=== PATIENT | female | born 1960 | race Two or more races ===

== ENCOUNTER 2021-08-20 13:37 | Emergency (ER) | payer OTHER, SELFPAY ==
--- NOTE | ~2021-08-20 | XR_ITS ---
EXAMINATION: XR CHEST CLINICAL INFORMATION: Chest pain COMPARISON: None TECHNIQUE: 2 views of the chest were obtained. FINDINGS: The cardiac and mediastinal contours are normal. The lungs are clear. There is no pleural effusion or pneumothorax. There are degenerative changes of the spine. XR/XR chest 2V IMPRESSION: No evidence for acute disease in the chest.
[2021-08-20 14:10] VITALS: BP 172/71; PULSE 84; RESP 18; TEMP 37; O2SAT 98; BMI 28.0
--- NOTE | 2021-08-20 14:14 | ECG_ITS ---
Test Reason : CP Blood Pressure : / mmHG Vent. Rate : 081 BPM Atrial Rate : 081 BPM P-R Int : 166 ms QRS Dur : 074 ms QT Int : 356 ms P-R-T Axes : 045 -03 043 degrees QTc Int : 413 ms Normal sinus rhythm Low voltage QRS Borderline ECG No previous ECGs available Referred By: Generic ED Physician Electronically Signed By:ARANZA NICOLE MD
[2021-08-20 14:57] LABS: COVID-19 Test Positive (Negative); IDNOW Serial# 9DD0AD1C
--- NOTE | 2021-08-20 15:24 | ED_ITS ---
HPI - URI/Sore Throat General Chief Complaint: Upper Respiratory Symptoms Stated Complaint: Sharp R back pain Time Seen by Provider: 08/20/21 15:32 Source: patient Mode of arrival: ambulatory Limitations: no limitations History of Present Illness HPI Narrative: 61-year-old female presents to ED for back pain, coughing, bilateral ear pain, chills, fever, and fatigue. Patient states she is not vaccinated against COVID. Patient states her was sick 1st and now she is having symptoms. Patient states no chest pain or shortness of breath. Denies any leg swelling calf pain or coughing up blood. Related Data Previous Rx's Medication Instructions Recorded benzonatate 100 mg capsule 100 mg PO TID PRN 5 Days #15 cap 08/20/21 naproxen 500 mg tablet 500 mg PO BID PRN 10 Days #20 tab 08/20/21 Allergies Allergy/AdvReac Type Severity Reaction Status Date / Time morphine Allergy Intermediate TACHYCARDIA Verified 08/20/21 14:10 [MORPHINE] acetaminophen Allergy Unknown RACING Verified 08/20/21 14:10 [From VICODIN] HEARTRATE From PERCOCET Allergy Mild DRY MOUTH Uncoded 04/10/20 16:56 From VICODIN Allergy Unknown RACING Uncoded 04/10/20 16:56 HEARTRATE Review of Systems Verdana 4l Review of Systems: Verdana 4d Cough, back pain, ear pain, Verdana 4d chills, fever, body aches. Negative for chest pain or shortness of breath. Negative for pleurisy Verdana 4d Yes all other systems are reviewed and are negative PMFSH Past Medical History Medical History (Updated 08/20/21 @ 15:57 by VINCENZO Jacobsen) Diabetes Social History Social History Advance Directives: No Advance Directives Information Provided: Yes Physical Exam Verdana 4l Vital Signs: Verdana 4d Verdana 4d Vital Signs: Verdana 4d Verdana 4Bd Last Vital Signs Verdana 4d Street Inspector New 4d Street Inspector New 4d Temp 98.6 F 08/20/21 14:10 Street Inspector New 4d Pulse 84 08/20/21 14:10 Street Inspector New 4d Resp 18 08/20/21 14:10 BP 172/71 H 08/20/21 14:10 Pulse Ox 98 08/20/21 14:10 BMI result Body Mass Index 28.0 Const: General: cooperative, healthy appearing, comfortable, no acute distress and well developed Orientation/consciousness: oriented to person, oriented to place, oriented to time and patient oriented x3 HENMT: Head: Yes normal to inspection, Yes No palpable skull fracture present, Yes normocephalic and Yes atraumatic Eyes: General: appearance normal, both eyes and all related structures Neck: Neck: Yes normal visual inspection, Yes full ROM, Yes no lymphadenopathy, Yes no meningeal signs, Yes trachea midline, Yes supple, No anterior neck swelling and No tender Chest: Chest palpation & inspection: normal inspection of the chest and normal palpation of entire chest wall Resp: Effort & Inspection: normal respiratory effort and able to speak in complete sentences Auscultation: clear to auscultation bilaterally Cardio: Jugular venous distension: no JVD Heart sounds: S1 normal heart sound present and S2 normal heart sound present GI: Inspection: Yes normal to inspection and No abdominal wall ecchymosis Palpation (GI): Soft to palpation, not firm, nontender, no guarding and not rigid : General: No CVA tenderness and Yes no CVA tenderness Back/Spine/Pelvis: Back: no CVA tenderness, No CVA tenderness and No Dunham-Hamilton sign present Skin: General skin exam: no rashes or lesions noted and elasticity normal Neuro: General: oriented to person, oriented to place, oriented to time, patient oriented x3, gait normal and no meningeal signs Extrem: Other: Lower extremities negative for swelling, pitting, edema, or calf tenderness. General: Yes normal to inspection and Yes full ROM Psych: Appearance: grossly normal, well kempt and not disheveled Course Course Course Narrative: Patient sent for COVID A chest x-ray Reevaluation(s) Reevaluation #1: Covid test is positive. patient chest xray is normal. Vital stable. patient referred for monoclonal antibody. NOt suspecting PE. Time: 15:50 MDM - URI/Sore Throat MDM Narrative Medical decision making narrative: Covid Lab Data Labs: Lab Results 08/20/21 Range/Units 14:39 COVID-19 ([facility]) Positive A (Negative) COVID-19 Clin Com See Note Discharge Plan Discharge Clinical Impression: COVID-19 Patient Disposition: Home, Self-Care Instructions: COVID-19 (Coronavirus Disease 2019) (ED) Additional Instructions: You came back positive for COVID. Recommend self-isolation for at least 12 days. Return to the ED if he have shortness of breath, chest pain, shortness of breath on exertion, chest pain on inspiration, calf pain, coughing up blood, weakness, dizziness intractable fever, or any other concerning symptoms. You referred for monoclonal antibodies. You will be called if you fit criteria to receive treatment. Please follow-up with primary care provider Prescriptions: New benzonatate 100 mg capsule 100 mg PO TID PRN (Reason: cough) 5 Days Qty: 15 0RF naproxen 500 mg tablet 500 mg PO BID PRN (Reason: pain) 10 Days Qty: 20 0RF Interventions: ED Discharge Assessment Last Done: 08/20/21 16:03 Discharge Date/Time: 08/20/21 16:04 Print Language: Venezuelan
== END 2021-08-20 16:04 | disposition home or self-care (01) ==
PROVIDERS: Emergency Provider Emergency Medicine Emergency Medical Services; PCP Physician Assistant
DX: U07.1 COVID-19 (principal); M54.9 Dorsalgia, unspecified
CPT/HCPCS: 71046; 87635; 93005; 99283

== ENCOUNTER 2021-09-05 22:53 | Emergency (ER) | payer OTHER, SELFPAY ==
--- NOTE | ~2021-09-05 | CT_ITS ---
EXAMINATION: CT CHEST WITHOUT CONTRAST CLINICAL INFORMATION: Left scapular pain for 2 weeks, negative chest COMPARISON: Chest x-ray 08/20/2021 TECHNIQUE: Multidetector volumetric CT imaging of the chest was done. Axial MIP volume rendering provided. Sagittal and coronal reformatted images were obtained. This CT examination was performed using dose optimization techniques as appropriate, variously including the following: *Automated exposure control *Adjustment of mA and/or kV according to patient size (this includes techniques or standardized protocols for targeted exams where dose is matched to indication/reason for exam; i.e. extremities or head) *Use of iterative reconstruction technique DLP: 282 mGy-cm FINDINGS: LUNGS: No dense regions of consolidation bilaterally. Mild ill-defined subpleural ground glass opacities in the lower lobes favor atelectasis. Few additional scattered, ill-defined subtle groundglass foci noted in the lung parenchyma, such as in the left upper lobe on image 136/501. MEDIASTINUM: Visualized thyroid gland appears unremarkable. There are subcentimeter mediastinal lymph nodes within the range of normal variation. Cardiac size is within normal limits; no pericardial effusion. Coronary artery calcifications are present. PLEURA: There is no pleural effusion. No pleural mass or thickening. AXILLA: No lymphadenopathy. UPPER ABDOMEN: A left adrenal nodule measures up to 1.6 cm in diameter and 31 Hounsfield units. OSSEOUS STRUCTURES: No acute findings identified. Multilevel endplate osteophytes are noted in the spine. CT/CT chest wo con IMPRESSION: 1. Few subtle ill-defined groundglass foci in the lungs, which may represent minimal inflammatory change. 2. Coronary artery calcifications. Correlation with cardiac risk factors is recommended. 3. Nonspecific left adrenal nodule measuring up to 1.6 cm. If not already performed, further assessment with nonemergent adrenal protocol CT is recommended.
[2021-09-05 23:00] VITALS: BP 129/63; PULSE 89; RESP 16; TEMP 36.4; O2SAT 100; BMI 28.0
--- NOTE | 2021-09-06 00:17 | ED.GENADULT ---
HPI - General Adult General Chief complaint: Back Pain/Injury Stated complaint: back pain Time Seen by Provider: 09/06/21 00:15 Source: patient and family () Mode of arrival: ambulatory Limitations: no limitations History of Present Illness HPI narrative: 61 years old female came in for evaluation of left scapular pain Pain started 2 weeks ago, pain is constant, confined to the right scapular area of the back, dull aching pain, worsening with movement, partially relieved with NSAIDs. No difficulty breathing, patient has been coughing nonproductive cough, but no trauma to the back or the chest. No recent travel, no lower extremity swelling or pain, no history of PE or DVT. Related Data Previous Rx's Medication Instructions Recorded benzonatate 100 mg capsule 100 mg PO TID PRN 5 Days #15 cap 08/20/21 naproxen 500 mg tablet 500 mg PO BID PRN 10 Days #20 tab 08/20/21 nitrofurantoin 100 mg PO BID #14 cap 09/06/21 monohydrate/macrocrystals 100 mg capsule (Macrobid) Allergies Allergy/AdvReac Type Severity Reaction Status Date / Time morphine [MORPHINE] Allergy Intermediate TACHYCARDIA Verified 08/20/21 14:10 acetaminophen [From VICODIN] Allergy Unknown RACING Verified 08/20/21 14:10 HEARTRATE From PERCOCET Allergy Mild DRY MOUTH Uncoded 04/10/20 16:56 From VICODIN Allergy Unknown RACING Uncoded 04/10/20 16:56 HEARTRATE Review of Systems Review of Systems: All other systems are reviewed and are negative Constitutional: Reports as per HPI and Reports no additional constitutional complaints Eyes: Reports as per HPI and Reports no additional eye complaints Reports system reviewed and no additional complaints, except as documented Cardiovascular: Reports as per HPI and Reports no additional cardiovascular complaints Respiratory: Reports as per HPI and Reports no additional respiratory complaints Gastrointestinal: Reports as per HPI and Reports no additional gastrointestinal complaints Genitourinary: Reports no additional female genitourinary complaints Musculoskeletal: Reports no additional musculoskeletal complaints Skin/Breast: Reports system reviewed and no additional complaints, except as docu Psychiatric: Reports no additional psychiatric complaints Endocrine: Reports no additional endocrine complaints Hematologic/Lymphatic: Reports no additional hematologic/lymphatic complaints Allergic/Immunologic: Reports no additional allergic/immunologic complaints Reports system reviewed and no additional complaints, except as documented and Reports Abnormal speech present [facility] Past Medical History Medical History Diabetes Social History Social History Advance Directives: No Patient : No Physical Exam ED Vital Signs: Vital Signs - 24 hr 09/05/21 23:00 Temperature 97.6 F Pulse Rate 89 Respiratory Rate 16 Blood Pressure 129/63 Pulse Oximetry 100 BMI result Body Mass Index 28.0 Vital signs have been reviewed as appeared to be correct. Blood pressure normal. Heart rate normal. Respiration rate normal. Temperature normal. Oxygen saturation normal. Appearance: Alert. Oriented X3. No acute distress. Head: Normal external exam. Normocephalic. Atraumatic. No Cast signs noted. No raccoon eyes noted Eyes: PERRLA. EOMI. Conjunctiva and sclera normal. Eyelids normal. ENT: TM's Normal. Pharynx normal. Uvula midline. Moist mucous membranes. No trismus noted. No drooling noted. No muffled voice noted. Neck: Normal inspection. Neck supple. FROM. No adenopathy. Thyroid Normal. No meningeal signs. No neck mass noted. CVS: Normal heart rate and rhythm. Heart sound normal. No murmurs noted. Pulses normal throughout. Respiratory: No respiratory distress. Painless inspiration. Breath sounds normal. No wheezes/rales/rhonchi noted. Diffuse tenderness over right scapular area, no palpable step-off or deformity. No accessory muscle usage noted or decreased air movement noted. Abdomen: Soft and nontender. Bowel sounds normal in all 4 quadrants. No distention noted. No organomegaly noted. No visible injury noted. Back: No CVA tenderness. Full range of motion noted. Skin: Skin warm and dry. Normal skin color. Normal skin turgor. No rashes/lesions/lacerations noted. Extremities: No lower extremity edema. Extremities exhibit normal range of motion. Extremities nontender. Neuro: Oriented X 3. Cranial nerve exam: II-XII are grossly intact No motor deficit. No sensory deficit. Reflexes normal. Course Course Course Narrative: Assessment and plan. Right scapular back pain appears to be muscular, patient had negative x-ray and CT of the chest showing incidental mass of left adrenal gland that will require further workup as an outpatient, CT finding was discussed with the patient. Discussed with the patient to continue using NSAIDs p.r.n. pain. Macrobid for 1 week for UTI and patient was encouraged to drink plenty of fluids. Medical Decision Making Lab Data Labs: Lab Results 09/06/21 Range/Units 01:04 Urine Color YELLOW Urine Appearance CLOUDY Urine pH 6.0 (5.0-8.0) Ur Specific [place] 1.020 (1.005-1.025) Urine Protein 3+ H (NEG-TRACE) MG/DL Urine Glucose (UA) 250 H (NEG) MG/DL Urine Ketones NEG (NEG) MG/DL Urine Blood 1+ H (NEG) Urine Nitrite NEG (NEG) Ur Leukocyte Esterase TRACE H (NEG) Urine RBC 1-4 (0) /HPF Urine WBC 10-14 H (0-4) /HPF Ur Squamous Epith Cells TRACE /LPF Ur Renal Epithelial Cell TRACE /LPF Urine Bacteria 4+ /LPF Hyaline Casts 1-4 /LPF Waxy Casts 0-2 /LPF Imaging Data Chest CT: Attestation: I personally reviewed and interpreted this imaging study as follows: Radiologist's impression: 1.? Few subtle ill-defined groundglass foci in the lungs, which may represent minimal inflammatory change. 2.? Coronary artery calcifications. Correlation with cardiac risk factors is recommended. 3.? Nonspecific left adrenal nodule measuring up to 1.6 cm. If not already performed, further assessment with nonemergent adrenal protocol CT is recommended. Discharge Plan Discharge Clinical Impression: Thoracic back pain, Adrenal nodule, UTI (urinary tract infection) Patient Disposition: Home, Self-Care Instructions: Urinary Tract Infection in Women (ED), Back Pain (ED) Additional Instructions: Need to follow-up with her primary doctor for the incidental mass that was found on your left adrenal gland (which is above your left kidney) Prescriptions: New nitrofurantoin monohyd/m-cryst [Macrobid] 100 mg capsule 100 mg PO BID Qty: 14 0RF Rx Instructions: must administer with a meal/food No Action benzonatate 100 mg capsule 100 mg PO TID PRN (Reason: cough) 5 Days Qty: 15 0RF naproxen 500 mg tablet 500 mg PO BID PRN (Reason: pain) 10 Days Qty: 20 0RF Referrals: Physician,Unknown J [Primary Care Provider] - 2 days
[2021-09-06 01:08] LABS: Appearance Urine CLOUDY; Color Urine YELLOW; Glucose Urine UA 250 MG/DL (NEG); Leukocyte Esterase Urine TRACE (NEG); Nitrite Urine NEG (NEG); UACC Culture Trigger YES; Urine Blood 1+ (NEG); Urine Ketones NEG (NEG); Urine Protein 3+ MG/DL (NEG-TRACE)
[2021-09-06 01:39] LABS: Renal Epithelial Cells Urine TRACE /LPF; Squamous Epithelial Cell Urine TRACE /LPF; Waxy Casts Urine 0-2 /LPF
[2021-09-06 01:40] LABS: Bacteria Urine 4+ /LPF
== END 2021-09-06 01:54 | disposition home or self-care (01) ==
PROVIDERS: Emergency Provider Emergency Medicine
DX: N39.0 Urinary tract infection, site not specified (principal); M54.6 Pain in thoracic spine; E27.8 Other specified disorders of adrenal gland; Z79.899 Other long term (current) drug therapy
CPT/HCPCS: 71250; 81001; 87086; 87088; 87186; 99284

== ENCOUNTER 2022-03-12 15:46 | Emergency (ER) | payer OTHER, SELFPAY ==
[2022-03-12 17:52] VITALS: BP 136/88; PULSE 82; RESP 16; TEMP 36.2; O2SAT 98; BMI 27.6
[2022-03-12 18:20] LABS: Red Cell Distribution Width 13.7 % (11.0-16.0)
[2022-03-12 18:21] LABS: Hematocrit 30.6 % (37.0-47.0); Hemoglobin 10.4 g/dl (12.0-16.0); Mean Corpuscular Hemoglobin 27.5 pg (27.0-33.0); Platelet Count 127 X10*3/uL (160-400); Red Blood Count 3.78 X10*6/uL (4.20-5.50); White Blood Count 7.4 X10*3/uL (4.8-10.8)
[2022-03-12 18:25] LABS: PLT ABN DIST 1
[2022-03-12 18:38] LABS: Anion Gap 15 (12-20); Blood Urea Nitrogen 25 mg/dL (9-16); Calcium 8.5 mg/dL (8.4-10.2); Carbon Dioxide 23 mmol/L (22-29); Chloride 102 mmol/L (96-108); Creatinine Clr Calc Pharmacy 37.4; Estimated Glomerular Filt Rate 36; Glucose Random 470 mg/dL (60-115); Potassium 4.3 mmol/L (3.3-5.1); Sodium 136 mmol/L (135-145)
[2022-03-12 21:15] VITALS: BP 207/95; PULSE 72; O2SAT 100
[2022-03-12 21:28] LABS: Glucose, Whole Blood 296 mg/dL (60-115)
== END 2022-03-12 23:12 | disposition left against medical advice (07) ==
PROVIDERS: Emergency Provider Emergency Medicine
DX: R10.31 Right lower quadrant pain (principal); Z79.899 Other long term (current) drug therapy
CPT/HCPCS: 36415; 80048; 82947; 85027; 99282; 99283

== ENCOUNTER 2022-04-22 15:17 | Emergency (ER) | payer OTHER, SELFPAY ==
--- NOTE | 2022-04-22 | ECG_ITS ---
Test Reason : chest pain Blood Pressure : / mmHG Vent. Rate : 083 BPM Atrial Rate : 083 BPM P-R Int : 168 ms QRS Dur : 072 ms QT Int : 362 ms P-R-T Axes : 047 000 028 degrees QTc Int : 425 ms Normal sinus rhythm Normal ECG When compared with ECG of 20-AUG-2021 14:42, No significant change was found Referred By: Generic ED Physician Electronically Signed By:GWENDOLYN NASH
--- NOTE | ~2022-04-22 | CT_ITS ---
EXAMINATION: CT HEAD WITHOUT CONTRAST CT CERVICAL SPINE WITHOUT CONTRAST CLINICAL INFORMATION: Headache. Hypertension. Fall. Neck pain. COMPARISON: None TECHNIQUE: Contiguous axial imaging was performed from the skull base to vertex without intravenous administration of contrast. Contiguous axial CT images of the cervical spine were obtained without contrast. Sagittal and coronal reformats were provided and reviewed. This CT examination was performed using dose optimization techniques as appropriate, variously including the following: *Automated exposure control. *Adjustment of mA and/or kV according to patient size (this includes techniques or standardized protocols for targeted exams where dose is matched to indication/reason for exam; i.e. extremities or head). *Use of iterative reconstruction technique. DLP: 1114 mGy-cm FINDINGS: HEAD: There is no evidence of acute intracranial hemorrhage or territorial infarction. No abnormal mass effect or midline shift is seen. Dunham to white matter differentiation is well preserved. No extra-axial fluid collections are identified. The ventricles are normal in size. There is no abnormal attenuation within the brain parenchyma. The osseous structures and soft tissues are normal. The mastoid air cells and visualized portions of the paranasal sinuses are well aerated. CERVICAL SPINE: Mild reversal of the normal cervical lordosis which may be positional or related to muscular spasm. No acute fracture or subluxation. No loss of vertebral body height. Multilevel loss of intervertebral disc height with endplate osteophytes, most prominent at C5-C6. Unremarkable facet joints. No lytic or blastic osseous lesion. Unremarkable prevertebral soft tissues. No abnormal soft tissue mass or fluid collection. Thyroid within normal limits. Visualized lung apices are clear. No significant central canal or neural foraminal stenosis. CT/CT cervical spine wo IV con IMPRESSION: HEAD: No acute intracranial hemorrhage or mass effect. CERVICAL SPINE: No acute fracture or subluxation. Mild reversal of the normal cervical lordosis which may be positional or related muscle spasm. Mild multilevel degenerative disc disease, most prominent at C5-C6.
--- NOTE | ~2022-04-22 | XR_ITS ---
EXAMINATION: XR CHEST CLINICAL INFORMATION: Chest pain COMPARISON: 08/20/2021 TECHNIQUE: 2 views of the chest were obtained. FINDINGS: No focal consolidation, pulmonary edema, or pleural effusion. Stable cardiomediastinal silhouette. XR/XR chest 2V IMPRESSION: No acute cardiopulmonary findings.
[2022-04-22 15:18] VITALS: BP 195/96; PULSE 90; RESP 18; TEMP 36.4; O2SAT 97; BMI 27.2
[2022-04-22 15:41] LABS: Hemoglobin 10.1 g/dl (12.0-16.0); Imm Gran Abs Auto 0.03 X10*3/uL (0.00-0.03); Imm Gran Pct Auto 0.4 % (0.0-0.4); MANUAL DIFF FLAG SCAN; SCAN SMEAR FLAG 1
[2022-04-22 15:43] LABS: Basophils Absolute Auto 0.1 X10*3/uL (0.0-0.2); Basophils Percent Auto 0.6 % (0-2); Eosinophils Absolute Auto 0.1 X10*3/uL (0.0-0.4); Eosinophils Percent Auto 1.6 % (0-4); Hematocrit 30.3 % (37.0-47.0); Lymphocytes Percent Auto 12.1 % (20-40); Mean Corpuscular HGB Conc 33.3 g/dl (31.0-35.0); Mean Corpuscular Hemoglobin 26.9 pg (27.0-33.0); Mean Corpuscular Volume 80.6 fL (80.0-98.0); Monocytes Absolute Auto 0.6 X10*3/uL (0.1-1.2); Monocytes Percent Auto 6.9 % (2-11); Neutrophils Absolute Auto 6.6 x10*3/uL (2.0-8.3); Neutrophils Percent Auto 78.4 % (45-73); Platelet Count 138 X10*3/uL (160-400); Red Blood Count 3.76 X10*6/uL (4.20-5.50); White Blood Count 8.4 X10*3/uL (4.8-10.8)
[2022-04-22 16:00] LABS: Troponin-I High Sensitivity 3.5 ng/L (<3.5-17.0)
[2022-04-22 16:01] LABS: PLT ABN DIST 1
[2022-04-22 16:02] LABS: Mean Platelet Volume 13.3 fL (9.4-12.3)
[2022-04-22 16:03] LABS: Anion Gap 17 (12-20); Blood Urea Nitrogen 28 mg/dL (9-16); Calcium 8.6 mg/dL (8.4-10.2); Carbon Dioxide 23 mmol/L (22-29); Chloride 103 mmol/L (96-108); Creatinine Clr Calc Pharmacy 37.1; Estimated Glomerular Filt Rate 36; Glucose Random 356 mg/dL (60-115); Potassium 4.1 mmol/L (3.3-5.1); SLIDE REVIEW VERIFIED; Sodium 139 mmol/L (135-145)
--- NOTE | 2022-04-22 16:45 | ED_ITS ---
HPI - Chest Pain General Chief Complaint: Chest Pain Stated Complaint: chest pains Time Seen by Provider: 04/22/22 16:32 Source: patient Mode of arrival: ambulatory History of Present Illness HPI narrative: 61-year-old female with history of hypertension states that she has been having intermittent left upper extremity numbness as well as pain that she states extends from the left to base of her neck out across her shoulder. She also s tates that she is having some pain into her left chest as well as into her back. She denies any recent fever, chills, shortness of breath, new cough, sore throat, palpitations. Patient states that she has fallen ?a couple of times? and denies any alcohol or drug use and states that 1 event involved her striking the back of her head. Related Data Previous Rx's Medication Instructions Recorded benzonatate 100 mg capsule 100 mg PO TID PRN cough 5 days #15 08/20/21 caps naproxen 500 mg tablet 500 mg PO BID PRN pain 10 days #20 08/20/21 tabs nitrofurantoin 100 mg PO BID #14 caps 09/06/21 monohydrate/macrocrystals 100 mg capsule (Macrobid) Allergies Allergy/AdvReac Type Severity Reaction Status Date / Time morphine [MORPHINE] Allergy Intermediate TACHYCARDIA Verified 08/20/21 14:10 acetaminophen [From VICODIN] Allergy Unknown RACING Verified 08/20/21 14:10 HEARTRATE From PERCOCET Allergy Mild DRY MOUTH Uncoded 04/10/20 16:56 From VICODIN Allergy Unknown RACING Uncoded 04/10/20 16:56 HEARTRATE Review of Systems Review of Systems: Pertinent positives and negatives as stated in HPI 10 point review of systems is otherwise negative. [facility] Past Medical History Source: nursing notes reviewed Medical History Diabetes Social History Social History Patient Tobacco Use Status: Former Tobacco user Use of substances other than those prescribed or required for medical reasons: No Advance Directives: No Advance Directives Information Provided: No Physical Exam Vital Signs: Vital Signs: Last Vital Signs Temp 97.8 F 04/22/22 19:27 Pulse 78 04/22/22 19:27 Resp 17 04/22/22 19:27 BP 186/90 H 04/22/22 19:27 Pulse Ox 99 04/22/22 19:27 O2 Del Method 04/22/22 19:27 BMI result Body Mass Index 27.2 VITAL SIGNS: Reviewed. GENERAL: Well developed, well nourished, in no acute distress. HEAD: Normocephalic/atraumatic EYES: PERRLA, EOMI EARS: Ext canals without abnormality NOSE: Nares patent bilateral OROPHARYNX: no oral lesions noted, posterior pharynx clear NECK: Supple, no adenopathy LUNGS: Normal breath sounds. No adventitious sounds or accessory muscle use. SpO2<99>; CHEST WALL: Reproducible discomfort on palpation over left anterior chest wall. CARDIOVASCULAR: Regular rate and rhythm without noted murmurs ABDOMEN: Soft, non-tender, non-distended with bowel sounds. MUSCULOSKELETAL: No tenderness, deformities, or effusions noted on gross inspection; LEFT SHOULDER: Reproducible pain on palpation across the trapezius spanning left neck base to left shoulder, full range of motion noted at the shoulder with neurovascular intact left upper extremity without swelling or erythema. EXTREMITIES: No cyanosis, clubbing or edema. SKIN: Inspection of the skin reveals no rashes NEUROLOGIC: Alert and oriented x 4. Strength and sensation to light touch were grossly intact x 4. Course Course Course Narrative: 61-year-old female with history and clinical presentation suggestive of musculoskeletal in etiology and on review of all investigations there are no acute findings to suggest acute cardiopulmonary etiology. Patient will be given pain medication, however she is noted to be very hypertensive and had not taken her blood pressure medication for the day. Given the hypertension, history of diabetes, and the outside possibility that the symptoms involving her left upper extremity may be due to hypertensive induced neurologic deficit will obtain head CT (she also states that she fell and struck her head) and cervical spine. Review of all investigations most consistent with musculoskeletal, muscle spasm. On re-evaluation patient states that she is feeling much better however she does continued to be hypertensive and was given additional medication for her blood pressure. MDM - Chest Pain Lab Data Result diagrams: 04/22/22 15:35 04/22/22 15:35 Labs: Lab Results 04/22/22 04/22/22 04/22/22 Range/Units 15:35 15:35 15:35 WBC 8.4 (4.8-10.8) X10*3/uL RBC 3.76 L (4.20-5.50) X10*6/uL Hgb 10.1 L (12.0-16.0) g/dl Hct 30.3 L (37.0-47.0) % MCV 80.6 (80.0-98.0) fL MCH 26.9 L (27.0-33.0) pg MCHC 33.3 (31.0-35.0) g/dl RDW 14.0 (11.0-16.0) % Plt Count 138 L (160-400) X10*3/uL MPV 13.3 H (9.4-12.3) fL Immature Gran % (Auto) 0.4 (0.0-0.4) % Neut % (Auto) 78.4 H (45-73) % Lymph % (Auto) 12.1 L (20-40) % [place] % (Auto) 6.9 (2-11) % Eos % (Auto) 1.6 (0-4) % Baso % (Auto) 0.6 (0-2) % Lymph # (Auto) 1.0 L (1.2-4.9) X10*3/uL [place] # (Auto) 0.6 (0.1-1.2) X10*3/uL Eos # (Auto) 0.1 (0.0-0.4) X10*3/uL Baso # (Auto) 0.1 (0.0-0.2) X10*3/uL Abs Immat Gran (auto) 0.03 (0.00-0.03) X10*3/uL Absolute Neuts (auto) 6.6 (2.0-8.3) x10*3/uL Absolute Nucleated RBC 0.000 (0.0-0.012) X10*3/uL Nucleated RBC % (auto) 0.0 (0.0-0.2) /100WBC Smear Tech's Comments VERIFIED Sodium 139 (135-145) mmol/L Potassium 4.1 (3.3-5.1) mmol/L Chloride 103 (96-108) mmol/L Carbon Dioxide 23 (22-29) mmol/L Anion Gap 17 (12-20) BUN 28 H (9-16) mg/dL Creatinine 1.47 H (0.5-1.4) mg/dL Estim Creat Clear Calc 37.1 Estimated GFR 36 Random Glucose 356 H* (60-115) mg/dL Calcium 8.6 (8.4-10.2) mg/dL Total Bilirubin 0.3 (0.0-1.0) mg/dL Direct Bilirubin < 0.2 (0.0-0.5) mg/dL AST 23 (5-31) U/L ALT 16 (0-31) U/L Alkaline Phosphatase 79 (39-117) U/L Troponin I High Sens 3.5 (<3.5-17.0) ng/L Total Protein 6.1 L (6.5-8.0) g/dL Albumin 3.1 L (3.5-5.0) g/dL 04/22/22 Range/Units 16:52 WBC (4.8-10.8) X10*3/uL RBC (4.20-5.50) X10*6/uL Hgb (12.0-16.0) g/dl Hct (37.0-47.0) % MCV (80.0-98.0) fL MCH (27.0-33.0) pg MCHC (31.0-35.0) g/dl RDW (11.0-16.0) % Plt Count (160-400) X10*3/uL MPV (9.4-12.3) fL Immature Gran % (Auto) (0.0-0.4) % Neut % (Auto) (45-73) % Lymph % (Auto) (20-40) % [place] % (Auto) (2-11) % Eos % (Auto) (0-4) % Baso % (Auto) (0-2) % Lymph # (Auto) (1.2-4.9) X10*3/uL [place] # (Auto) (0.1-1.2) X10*3/uL Eos # (Auto) (0.0-0.4) X10*3/uL Baso # (Auto) (0.0-0.2) X10*3/uL Abs Immat Gran (auto) (0.00-0.03) X10*3/uL Absolute Neuts (auto) (2.0-8.3) x10*3/uL Absolute Nucleated RBC (0.0-0.012) X10*3/uL Nucleated RBC % (auto) (0.0-0.2) /100WBC Smear Tech's Comments Sodium (135-145) mmol/L Potassium (3.3-5.1) mmol/L Chloride (96-108) mmol/L Carbon Dioxide (22-29) mmol/L Anion Gap (12-20) BUN (9-16) mg/dL Creatinine (0.5-1.4) mg/dL Estim Creat Clear Calc Estimated GFR Random Glucose (60-115) mg/dL Calcium (8.4-10.2) mg/dL Total Bilirubin (0.0-1.0) mg/dL Direct Bilirubin (0.0-0.5) mg/dL AST (5-31) U/L ALT (0-31) U/L Alkaline Phosphatase (39-117) U/L Troponin I High Sens 3.8 (<3.5-17.0) ng/L Total Protein (6.5-8.0) g/dL Albumin (3.5-5.0) g/dL ECG Data ECG #1: Attestation: I personally reviewed and interpreted this ECG as follows: Prior ECG tracings: available for review Interpretation: Normal sinus rhythm, HR-83, no STEMI, MI/QRS/QTC are within normal limits. Discharge Plan Discharge Clinical Impression: Hypertension, Musculoskeletal pain, Muscle spasm Patient Disposition: Home, Self-Care Instructions: DASH Eating Plan (ED), Hypertension (ED), Muscle Spasm (ED), Musculoskeletal Pain (ED) Additional Instructions: 1. Muscle spasm: Recommend [id number] Tylenol/ibuprofen and consider using a lidocaine patch for additional symptom relief. 2. Please start taking your blood pressure medication in the morning as directed. 3. Follow-up with your primary care provider tomorrow morning to further discuss improve blood pressure control. Return to the ER for worsening symptoms. Prescriptions: No Action benzonatate 100 mg capsule 100 mg PO TID PRN (Reason: cough) 5 Days Qty: 15 0RF naproxen 500 mg tablet 500 mg PO BID PRN (Reason: pain) 10 Days Qty: 20 0RF nitrofurantoin monohyd/m-cryst [Macrobid] 100 mg capsule 100 mg PO BID Qty: 14 0RF Rx Instructions: must administer with a meal/food
[2022-04-22 17:20] LABS: Troponin-I High Sensitivity 3.8 ng/L (<3.5-17.0)
[2022-04-22 17:52] VITALS: BP 203/106; PULSE 89; RESP 18; O2SAT 99
[2022-04-22] MEDS: Cyclobenzaprine HCl 5 MG TABLET PO (18:21)
[2022-04-22] MEDS: hydrALAZINE HCl 20 MG/ML VIAL 5 MG IVPUSH (18:21)
[2022-04-22] MEDS: Ketorolac Tromethamine 30 MG/ML VIAL 15 MG IVPUSH (18:22)
[2022-04-22] MEDS: Lidocaine 4 % Patch ADH..PATCH 1 PATCH TRANSDERMA (18:22)
[2022-04-22 18:30] LABS: Bilirubin Direct < 0.2 mg/dL (0.0-0.5); Bilirubin Total 0.3 mg/dL (0.0-1.0)
[2022-04-22 18:31] LABS: Alanine Aminotransferase 16 U/L (0-31); Albumin Level 3.1 g/dL (3.5-5.0); Alkaline Phosphatase 79 U/L (39-117); Aspartate Amino Transferase 23 U/L (5-31); Total Protein 6.1 g/dL (6.5-8.0)
[2022-04-22 19:27] VITALS: BP 186/90; PULSE 78; RESP 17; TEMP 36.6; O2SAT 99
[2022-04-22 20:05] LABS: Appearance Urine Cloudy; Color Urine Dark Yellow; Glucose Urine UA >=1000 mg/dL (Negative); Leukocyte Esterase Urine Trace (Negative); Nitrite Urine Negative (Negative); PH 5.5 (5.0-9.0); UMIC TRIGGER UACC YES; Urine Blood Moderate (2+) (Negative); Urine Ketones Negative (Negative); Urine Protein 300 (3+) mg/dL (Neg-Trace)
[2022-04-22 20:10] VITALS: BP 196/93; PULSE 79
[2022-04-22] MEDS: Labetalol HCL 100 MG/20 ML VIAL IVPUSH (20:21)
[2022-04-22 20:56] VITALS: BP 168/75; PULSE 80
[2022-04-22 22:32] LABS: Bacteria Urine 4+ (None Seen); Hyaline Casts Urine 0-2 /LPF (0-2); UACC Culture Trigger YES; WBC Urine 21-50 /HPF (0-5)
== END 2022-04-22 21:03 | disposition home or self-care (01) ==
PROVIDERS: Emergency Provider Student in an Organized Health Care Education/Training Program
DX: I10 Essential (primary) hypertension (principal); M79.10 Myalgia, unspecified site; M62.838 Other muscle spasm; E11.9 Type 2 diabetes mellitus without complications
CPT/HCPCS: 36415; 70450; 71046; 72125; 80048; 80076; 81001; 81003; 84484; 85025; 87086; 87088; 87186; 93005; 96374; 96375; 99284; J1885